=== PATIENT | female | born 1950 | race Caucasian/White ===

== ENCOUNTER → 2016-10-26 08:31 | Day surgery (SDC) | payer BC ==
[~2016-10-26 08:31] MED LIST: Acetaminophen TAB* 325 MG PO PRN; Bacitracin OINTMENT* 1 TUBE ONE; Buffered Lidocaine 1% SYRIN* 3 ML/SYR SYRINGE INTRADERM ONE; DiMENhydriNATE IV* 50 MG/ML VIAL IV PUSH PRN; Famotidine IV* 10 MG/ML 2 ML (20 mg) ONE; HYDROcodone/ACETAMIN 5-325 MG* 1 TAB PO PRN; KETAMINE HCL* 50 MG/ML 10 ML VIAL ONE; Levalbuterol 0.63MG/3ML NEB INH PRN; Lidocaine 1% MPF wEPI 200,000* 30 ML SDV ONE; Lidocaine 2% PF* 5 ML VIAL ONE; Lidocaine 4% TOPICAL* 50 ML TOP.SOLN ONE; Midazolam* 1 MG/ML 2 ML VIAL (2 MG) ONE; Ondansetron INJ* 2 MG/ML VIAL IV PRN; Ondansetron INJ* 2 MG/ML VIAL ONE; Oxymetazoline 0.05% NASAL SPR* 15 ML BTL ONE; Propofol* 10 MG/ML 20 ML BTL IV PUSH ONE; ceFAZolin 2 GM PREMIX(*) 2 GM/50 ML BAG IVPB ONE; diPHENhydraMINE IV* 50 MG/ML 1 ml VIAL (BENADRYL) ONE; fentaNYL* 50 MCG/ML 2 ML VIAL (100 MCG VIAL) ONE; metroNIDAZOLE IV 500 MG/100ML* 500 MG/100 ML BAG IVPB ONE
[2016-10-26 11:29] VITALS: BP 156/78
--- NOTE | 2016-10-27 00:36 | OP ---
DATE OF OPERATION: 10/26/16 - [facility] DATE OF : 54 SURGEON: Antoine Ricketts MD [employer]ARM [employer]MENT ASSEMBLER: None. ANESTHESIOLOGIST: Dr. Tobias ANESTHESIA: Local MAC. PRE-OP DIAGNOSIS: Bilateral inferior turbinate hypertrophy. POST-OP DIAGNOSIS: Bilateral inferior turbinate hypertrophy. OPERATIVE PROCEDURE: Outfracture and cautery of the inferior turbinates. SPECIMENS: None. INDICATIONS: This is a 66-year-old woman with obstructive sleep apnea and nasal congestion who has had a difficult time interfacing with her CPAP due to chronic nasal congestion unmanageable with medications. A decision was made based on her exam to bring her to the operating for inferior turbinate reduction. DESCRIPTION OF PROCEDURE: On 10/26/16, the patient was brought to the operating room, sedation was given with intravenous medications by the anesthesiologist. A time-out was performed. Cottonoid pledgets soaked with Afrin and 4% lidocaine were placed into each nasal cavity. Once adequate time had been allowed her for vasoconstriction, each inferior turbinate was infiltrated with approximately 3 cc of 1% lidocaine with 1:200,000 epinephrine. The turbinates were then infractured with the caudal elevator. Approximately three passes were made through each turbinate with the Elmed bipolar device and the turbinates were then outfractured. There was minimal bleeding for the procedure. The patient was then returned to the care of the anesthesiologist, and allowed to rise from sedation and delivered to the PACU ins table condition. [id number] #: [id number] MTDD
== END | disposition home or self-care (01) ==
LOC: OR 08:31
PROVIDERS: ATTEND Otolaryngology
DX: J34.3 Hypertrophy of nasal turbinates (principal); G47.33 Obstructive sleep apnea (adult) (pediatric); I10 Essential (primary) hypertension; J45.909 Unspecified asthma, uncomplicated
CPT/HCPCS: A9270-GY; J0690; J1200; J2001; J2250; J2405; J2704; J3010

== ENCOUNTER 2018-02-24 16:56 | Emergency (ER) | payer MEDICARE, BC ==
--- NOTE | 2018-02-24 17:08 | UC ---
Throat Pain/Nasal Jorge HPI - HPI Summary HPI Summary: 67 yo female presents with sinus pain/pressure/congestin and b/l eye redness and drainage for the last 6 days. She tells me that her symptoms started 6 days ago with mild sinus symptoms and eye redness/drainage. She saw her eye doctor who prescribed her anbx eye drops and her eyes have been improving - but her sinus symptoms are getting worse with post nasal drip and a sore throat starting the last 2-3 days. Has not been taking anything OTC for her sinus congestion. Denies fever, chills, cough, SOB, chest pain, abdominal pain, n/v. - History of Current Complaint Chief Complaint: UCRespiratory Stated Complaint: COUGH Time Seen by Provider: 02/24/18 17:08 Hx Obtained From: Patient Onset/Duration: Gradual Onset Severity: Moderate Pain Intensity: 5 Pain Scale Used: 0-10 Numeric - Allergies/Home Medications Allergies/Adverse Reactions: Allergies Allergy/AdvReac Type Severity Reaction Status Date / Time bupropion [From Wellbutrin] Allergy Hives Verified 02/24/18 17:05 danazol Allergy Hives Verified 02/24/18 17:05 Home Medications: Home Medications Atorvastatin* [Lipitor 40 MG*] 1 tab PO DAILY 02/24/18 [History Confirmed ] Propranolol TAB* [Inderal TAB*] 1 tab PO DAILY 02/24/18 [History Confirmed 02/24] PMH/Surg Hx/FS Hx/Imm Hx - Additional Past Medical History Additional PMH: HTN Sarcoidosis Endocrine History: Dyslipidemia - Surgical History Surgical History: Yes Surgery Procedure, Year, and Place: GABY KNEE REPLACEMENTS 2008, 2009. GALLBLADDER REMOVAL 2009. OVARIAN CYST REMOVAL . endoscopic knee surgery right? knee . lung biopsy 2006 - Family History Known Family History: Positive: Hypertension - Social History Occupation: Retired Lives: With Family Alcohol Use: Rare Substance Use Type: None Smoking Status (MU): Never Smoked Tobacco Have You Smoked in the Last Year: No - Immunization History Most Recent Tetanus Shot: <10 YEARS Review of Systems Constitutional: Negative Skin: Negative Eyes: Drainage, Eye Redness ENT: Nasal Discharge, Sinus Congestion, Sinus Pain/Tenderness Respiratory: Negative Cardiovascular: Negative Gastrointestinal: Negative Motor: Negative Neurovascular: Negative Neurological: Negative Psychological: Negative All Other Systems Reviewed And Are Negative: Yes Physical Exam - Summary Physical Exam Summary: GENERAL: NAD. WDWN. No pain distress. SKIN: No rashes, sores, lesions, or open wounds. HEENT: Head: AT/NC Eyes: EOM intact. Mild conjunctival discharge with inflammation and mild scleral injection. Ears: Hearing grossly normal. TMs intact, no bulging, erythema, or edema. Nose: Nasal mucosa mildly swollen and erythematous with clear discharge. Mild TTP maxillary and frontal sinus. Throat: Posterior oropharynx without exudates, erythema, or tonsillar enlargement. Uvula midline. NECK: Supple. Nontender. No lymphadenopathy. CHEST: CTAB. No r/r/w. No accessory muscle use. Breathing comfortably and in no distress. CV: RRR. Without m/r/g. Pulses intact. Brisk cap refill. NEURO: Alert. CN II-XII grossly intact. PSYCH: Age appropriate behavior. Triage Information Reviewed: Yes Vital Signs: Initial Vital Signs Temp 98.2 F 02/24/18 17:01 Pulse 86 02/24/18 17:01 Resp 18 02/24/18 17:01 BP 189/99 02/24/18 17:01 Pulse Ox 98 02/24/18 17:01 Vital Signs Reviewed: Yes Throat Pain/Nasal Course/Dx - Course Course Of Treatment: Sinusitis - Differential Dx/Diagnosis Provider Diagnoses: Sinusitis Discharge - Sign-Out/Discharge Documenting (check all that apply): Patient Departure - Discharge Plan Condition: Stable Disposition: HOME Prescriptions: Amoxicillin/Clavulanate TAB* [Augmentin TAB 875*] 875 mg PO BID #20 tab Patient Education Materials: Sinusitis (ED) Referrals: Yaneth Emmanuel MD [Primary Care Provider] - Additional Instructions: If you develop a fever, shortness of breath, chest pain, new or worsening symptoms - please call your PCP or go to the ED. Your blood pressure was high at todays visit. Please see your primary provider within 4 weeks for recheck and re-evaluation. Per institutional requirements, I have reviewed the chart, however, I was not consulted specifically or made aware of this patient by the above midlevel provider. I did not personally evaluate, interact with , or disposition this patient. - Billing Disposition and Condition Condition: STABLE Disposition: Home
[2018-02-24 17:20] VITALS: BP 168/100
== END 2018-02-24 17:20 | disposition home or self-care (01) ==
LOC: UCEAST 16:56
DX: J32.9 Chronic sinusitis, unspecified (principal); E78.5 Hyperlipidemia, unspecified; I10 Essential (primary) hypertension; Z96.653 Presence of artificial knee joint, bilateral; Z88.8 Allergy status to other drugs, medicaments and biological substances; Z82.49 Family history of ischemic heart disease and other diseases of the circulatory system
CPT/HCPCS: 99212; G0463

== ENCOUNTER 2018-04-19 11:24 | Emergency (ER) | payer MEDICARE, BC ==
[2018-04-19 11:47] VITALS: BP 171/96
--- NOTE | 2018-04-19 12:49 | UC ---
Throat Pain/Nasal Jorge HPI - HPI Summary HPI Summary: 68-year-old woman here with a complaint of sinusitis symptoms and also white plaques in her mouth. Sinusitis symptoms started a little more that we could go. She has sinus pressure and rhinorrhea and sore throat. No cough or chest congestion no shortness of breath. No fevers she is feeling fatigued. His also noticed white areas on her tongue and on her cheeks. She has a concern of thrush. They are not painful. She brushed them off this morning while brushing her teeth. - History of Current Complaint Chief Complaint: UCRespiratory Stated Complaint: SORE IN MOUTH Time Seen by Provider: 04/19/18 12:36 Pain Intensity: 5 - Allergies/Home Medications Allergies/Adverse Reactions: Allergies Allergy/AdvReac Type Severity Reaction Status Date / Time bupropion [From Wellbutrin] Allergy Hives Verified 04/19/18 11:47 danazol Allergy Hives Verified 04/19/18 11:47 Home Medications: Home Medications Atenolol 12 mg PO DAILY 04/19/18 [History Confirmed 04/19/18] Mirtazapine [Remeron Soltab] 7.5 mg PO DAILY 04/19/18 [History Confirmed ] busPIRone TAB* [Buspar TAB *] 2.5 mg PO DAILY 04/19/18 [History Confirmed ] PMH/Surg Hx/FS Hx/Imm Hx - Additional Past Medical History Additional PMH: SINUSITIS - Surgical History Surgical History: Yes Surgery Procedure, Year, and Place: GABY KNEE REPLACEMENTS 2008, 2009. GALLBLADDER REMOVAL 2009. OVARIAN CYST REMOVAL . endoscopic knee surgery right? knee . lung biopsy 2006 - Family History Known Family History: Positive: Hypertension - Social History Alcohol Use: Rare Substance Use Type: Prescribed Smoking Status (MU): Never Smoked Tobacco Have You Smoked in the Last Year: No - Immunization History Most Recent Tetanus Shot: <10 YEARS Review of Systems Constitutional: Negative Skin: Negative Eyes: Negative ENT: Sore Throat, Nasal Discharge, Sinus Congestion, Other - SEE HPI Respiratory: Negative Cardiovascular: Negative Gastrointestinal: Negative Motor: Negative Neurovascular: Negative Musculoskeletal: Negative Neurological: Negative Psychological: Negative Is Patient Immunocompromised?: No All Other Systems Reviewed And Are Negative: Yes Physical Exam Triage Information Reviewed: Yes Appearance: Well-Appearing, No Pain Distress, Well-Nourished Vital Signs: Initial Vital Signs Temp 98.4 F 04/19/18 11:42 Pulse 66 04/19/18 11:42 Resp 18 04/19/18 11:42 BP 171/96 04/19/18 11:42 Pulse Ox 96 04/19/18 11:42 Eye Exam: Normal Eyes: Positive: Conjunctiva Clear ENT: Positive: Pharyngeal erythema, Nasal congestion, Nasal drainage, TMs normal , Other - There are a few areas of white plaques on the tongue Dental Exam: Normal Neck exam: Normal Neck: Positive: Supple Respiratory Exam: Normal Respiratory: Positive: Lungs clear, Normal breath sounds, No respiratory distress Cardiovascular Exam: Normal Cardiovascular: Positive: RRR Musculoskeletal Exam: Normal Musculoskeletal: Positive: Strength Intact, ROM Intact Neurological Exam: Normal Neurological: Positive: Alert, Muscle Tone Normal Psychological Exam: Normal Psychological: Positive: Age Appropriate Behavior Skin Exam: Normal Throat Pain/Nasal Course/Dx - Course Course Of Treatment: DISCUSSED VIRAL VERSES BACTERIAL INFECTION AND THE ROLE OF ANTIBIOTICS. THE PATIENT WISHES TO BE ON ANTIBIOTICS AT THIS TIME. - Differential Dx/Diagnosis Provider Diagnoses: ORAL THRUSH. SINUSITIS Discharge - Sign-Out/Discharge Documenting (check all that apply): Patient Departure All imaging exams completed and their final reports reviewed: No Studies - Discharge Plan Condition: Stable Disposition: HOME Prescriptions: Amoxicillin/Clavulanate TAB* [Augmentin TAB 875*] 875 mg PO BID #20 tab Nystatin SUSPENSION* 500,000 units .SEE ORDER QID #200 ml Patient Education Materials: Oral Candidiasis (ED), Sinusitis (ED) Referrals: Yaneth Emmanuel MD [Primary Care Provider] - Additional Instructions: FOLLOW UP WITH YOUR DOCTOR. GET RECHECKED FOR ANY WORSENING OF YOUR CONDITION OR QUESTIONS OR CONCERNS. - Billing Disposition and Condition Condition: STABLE Disposition: Home
== END 2018-04-19 12:58 | disposition home or self-care (01) ==
LOC: UCEAST 11:24
DX: B37.0 Candidal stomatitis (principal); J02.9 Acute pharyngitis, unspecified; J32.9 Chronic sinusitis, unspecified; Z88.8 Allergy status to other drugs, medicaments and biological substances; Z96.653 Presence of artificial knee joint, bilateral
CPT/HCPCS: 99212; G0463

== ENCOUNTER 2019-07-20 10:00 | Emergency (ER) | payer MEDICARE, BC ==
[2019-07-20 10:08] VITALS: BP 161/92
--- NOTE | 2019-07-20 10:15 | UC ---
Respiratory Complaint HPI - HPI Summary HPI Summary: 2 weeks of cough and intermittent chills has been fatigued--did get a flu vaccine with similar symptoms but his have lasted 2 weeks longer - History of Current Complaint Chief Complaint: UCGeneralIllness Stated Complaint: SORE THROAT, COUGH, HEADACHE Time Seen by Provider: 07/20/19 10:10 Hx Obtained From: Patient ?: No Onset/Duration: Gradual Onset, Lasting Weeks - 2 Timing: Intermittent Episodes - symptoms are waxing and waneing- Pain Intensity: 5 Pain Scale Used: 0-10 Numeric Character: Cough: Nonproductive Aggravating Factors: Nothing Alleviating Factors: Nothing Associated Signs And Symptoms: Positive: URI - Allergies/Home Medications Allergies/Adverse Reactions: Allergies Allergy/AdvReac Type Severity Reaction Status Date / Time bupropion [From Wellbutrin] Allergy Hives Verified 07/20/19 10:09 danazol Allergy Hives Verified 07/20/19 10:09 Home Medications: Home Medications Brexpiprazole [Rexulti] 1 tab PO DAILY 07/20/19 [History Confirmed 07/20/19] Chlorthalidone 1 tab PO DAILY 07/20/19 [History Confirmed 07/20/19] Escitalopram * [Lexapro *] 1 tab PO DAILY 07/20/19 [History Confirmed 07/20/19] clonazePAM [Clonazepam] 1 tab PO DAILY 07/20/19 [History Confirmed 07/20/19] PMH/Surg Hx/FS Hx/Imm Hx Previously Healthy: No Cardiovascular History: Hypertension Psychological History: Depression - Surgical History Surgical History: Yes Surgery Procedure, Year, and Place: GABY KNEE REPLACEMENTS 2008, 2009. GALLBLADDER REMOVAL 2009. OVARIAN CYST REMOVAL . endoscopic knee surgery right? knee . lung biopsy 2006 - Family History Known Family History: Positive: Hypertension - Social History Occupation: Retired Lives: With Family Alcohol Use: Rare Substance Use Type: Prescribed Smoking Status (MU): Never Smoked Tobacco Have You Smoked in the Last Year: No - Immunization History Most Recent Tetanus Shot: <10 YEARS Review of Systems All Other Systems Reviewed And Are Negative: Yes Constitutional: Positive: Fatigue Skin: Positive: Negative Eyes: Positive: Negative ENT: Positive: Sore Throat - left, Ear Ache - left Respiratory: Positive: Cough Cardiovascular: Positive: Negative Gastrointestinal: Positive: Negative Genitourinary: Positive: Negative Motor: Positive: Negative Neurovascular: Positive: Negative Musculoskeletal: Positive: Negative Neurological: Positive: Negative Psychological: Positive: Negative Is Patient Immunocompromised?: No Physical Exam Triage Information Reviewed: Yes Appearance: No Pain Distress, Well-Nourished, Ill-Appearing - mild Vital Signs: Initial Vital Signs Temp 98.4 F 07/20/19 10:06 Pulse 100 07/20/19 10:06 Resp 18 07/20/19 10:06 BP 161/92 07/20/19 10:06 Pulse Ox 98 07/20/19 10:06 Vital Signs Reviewed: Yes Eye Exam: Normal Eyes: Positive: Conjunctiva Clear ENT Exam: Normal ENT: Positive: Normal ENT inspection, Hearing grossly normal, Pharynx normal, TMs normal, Uvula midline. Negative: Nasal congestion, Tonsillar swelling, Tonsillar exudate, Trismus, Muffled voice, Hoarse voice, Dental tenderness, Sinus tenderness Dental Exam: Normal Neck exam: Normal Neck: Positive: Supple, Nontender, No Lymphadenopathy Respiratory Exam: Normal Respiratory: Positive: Chest non-tender, Lungs clear, Normal breath sounds, No respiratory distress, No accessory muscle use Cardiovascular Exam: Normal Cardiovascular: Positive: RRR, No Murmur, Pulses Normal, Brisk Capillary Refill Musculoskeletal Exam: Normal Musculoskeletal: Positive: Strength Intact, ROM Intact, No Edema Neurological Exam: Normal Neurological: Positive: Alert, Muscle Tone Normal Psychological Exam: Normal Skin Exam: Normal Respiratory Course/Dx - Course Course Of Treatment: increase fluids, otc medications for symptom relief, follow blood pressure with pcp - Differential Dx/Diagnosis Provider Diagnosis: Viral URI with cough, Acute dysfunction of left eustachian tube, Hypertension Discharge ED - Sign-Out/Discharge Documenting (check all that apply): Patient Departure All imaging exams completed and their final reports reviewed: No Studies - Discharge Plan Condition: Stable Disposition: HOME Patient Education Materials: Viral Syndrome (ED), Hypertension (ED) Referrals: Nany Raman DO [Primary Care Provider] - 1 Week - Billing Disposition and Condition Condition: STABLE Disposition: Home - Attestation Statements Provider Attestation: I was available for consult. This patient was seen by the TANIA. The patient was not presented to, seen by, or examined by me. -Nicholas
== END 2019-07-20 10:41 | disposition home or self-care (01) ==
LOC: UCEAST 10:00
DX: J06.9 Acute upper respiratory infection, unspecified (principal); R05 Cough; I10 Essential (primary) hypertension; H69.92 Unspecified Eustachian tube disorder, left ear; F32.9 Major depressive disorder, single episode, unspecified; Z88.8 Allergy status to other drugs, medicaments and biological substances; Z79.899 Other long term (current) drug therapy
CPT/HCPCS: 99201; G0463